=== PATIENT | male | born 1965 | race Caucasian/White ===

== ENCOUNTER 2021-12-09 15:54 | Emergency (ER) | payer OTHER ==
[~2021-12-09] VITALS: Ht 182.9 cm; Wt 93.9 kg
[2021-12-09 17:33] VITALS: BP 167/94
[2021-12-09] MEDS ORDERED: ACETAMINOPHEN 325 MG TAB PO ONE (17:45)
[2021-12-09] MEDS ORDERED: CYCL-837 PO (18:04)
[2021-12-09] MEDS ORDERED: ACET-1158 PO (18:04)
== END 2021-12-09 18:05 | disposition home or self-care (01) ==
LOC: ER 15:54
DX: S16.1XXA Strain of muscle, fascia and tendon at neck level, initial encounter (principal); S29.012A Strain of muscle and tendon of back wall of thorax, initial encounter; S20.219A Contusion of unspecified front wall of thorax, initial encounter; I10 Essential (primary) hypertension; V43.62XA Car passenger injured in collision with other type car in traffic accident, initial encounter; Y93.89 Activity, other specified; Y92.410 Unspecified street and highway as the place of occurrence of the external cause; Y99.8 Other external cause status
CPT/HCPCS: 71045; 72070; 72125; 93005